=== PATIENT | female | born 1950 | race Caucasian/White ===

== ENCOUNTER 2020-04-04 06:10 | Emergency (ER) | payer MEDICARE, BC ==
--- NOTE | 2020-04-04 06:28 | ED Physician Documentation ---
PD HPI LOWER EXT INJURY - Stated complaint Stated Complaint: R FOOT PX - Chief complaint Chief Complaint: Trauma Ext - History obtained from History obtained from: Patient - History of Present Illness PD HPI LOW EXT INJURY LOCATION: Right, Foot Type of injury: Twist Where injury occurred: Home Timing - onset: Yesterday Timing - details: Abrupt onset Pain level now: 4 Improved by: Rest, Ice, Immobilization Worsened by: Moving, Palpating Associated symptoms: Swelling Recently seen: Not recently seen - Additional information Additional information: c/o sudden onset right foot pain, lateral aspect, with swelling. onset was yesterday while walking in her garden, stepped on uneven surface and sustained twisting injury to right foot. She has h/o right 4th and 5th metatarsal fractures, sustained last year, which have been managed nonsurgically. She took Tylenol with codeine yesterday after the injury with modest relief Review of Systems Musculoskeletal: reports: Extremity pain, Extremity swelling, Pain with weight bearing Neurologic: denies: Focal weakness, Numbness PD PAST MEDICAL HISTORY - Past Medical History Past Medical History: Yes Cardiovascular: Hypertension, High cholesterol - Present Medications Home Medications: Ambulatory Orders Medication Instructions Recorded Confirmed Acetaminophen/Cod 300/30 [Tylenol 1 tab PO DAILY PRN 04/04/20 04/04/20 #3] HYDROcod/ACETAM 5/325 [Felton 5/325] 1 - 2 ea PO Q6H PRN #15 tablet 04/04/20 Lisinopril [Zestril] 10 mg PO DAILY 04/04/20 04/04/20 Rosuvastatin Calcium [Crestor] 40 mg PO DAILY 04/04/20 04/04/20 - Allergies Allergies/Adverse Reactions: Allergies Allergy/AdvReac Type Severity Reaction Status Date / Time atorvastatin [From Lipitor] AdvReac Cramps Verified 04/04/20 06:29 [email or web address] AdvReac Cramps Verified 04/04/20 06:28 - Living Situation Living Situation: reports: With spouse/s.o. Living Arrangement: reports: At home PD ED PE NORMAL - Vitals Vital signs reviewed: Yes - General General: Alert and oriented X 3, No acute distress, Well developed/nourished - Derm Derm: Normal color - Neuro Neuro: No motor deficit, No sensory deficit PD ED PE EXPANDED - Extremities Feet visual: 1 - swelling, tenderness Results - Vitals Vitals: Vital Signs - 24 hr 04/04/20 06:10 Temperature 35.8 C L Heart Rate 108 H Respiratory 16 Rate Blood Pressure 163/83 H O2 Saturation 96 Oxygen O2 Source Room air - Rads (name of study) right foot xrays Radiology: Prelim report reviewed, See rad report PD MEDICAL DECISION MAKING - ED course Complexity details: reviewed results, re-evaluated patient, considered differential, d/w patient Departure - Departure Disposition: 01 Home, Self Care Clinical Impression: Cuboid fracture Condition: Good Instructions: ED Crutch Walking, ED Fx Foot, ED Splint Care Fiberglass Follow-Up: Jett Cordero MD [Provider Admit Priv/Credential] - Prescriptions: HYDROcod/ACETAM 5/325 [Felton 5/325] 1 - 2 ea PO Q6H PRN #15 tablet PRN Reason: Pain Comments: Your xrays show: 1) a tiny avulsion fracture posterior inferior aspect of the cuboid bone with adjacent soft tissue edema 2) deformity from remote fractures of the fourth and fifth metatarsals. 3) plantar calcaneal spur
--- NOTE | 2020-04-04 08:06 | XRAY Report ---
PROCEDURE: Foot 3 View RT INDICATIONS: inverted R foot/swelling c/o pain. TECHNIQUE: 3 views of the foot were acquired. COMPARISON: None FINDINGS: Bones: No fractures or dislocations. No suspicious bony lesions. Osteopenia and IP degenerative ch anges are noted. Old mid fifth metatarsal fracture is present. Soft tissues: No tibiotalar joint effusion. Achilles tendon appears normal. IMPRESSION: No visualized acute fracture or dislocation. However, occult injury cannot be excluded. Recommend yvonne rt interval imaging follow-up in 7-10 days as clinically indicated for additional evaluation. Reviewed by: Lois Foy MD on 04/04/2020 8:04 AM PDT Approved by: Lois Foy MD on 04/04/2020 8:04 AM PDT Station ID: [id number]
[2020-04-04 08:56] VITALS: BP 156/99
== END 2020-04-04 09:03 | disposition home or self-care (01) ==
LOC: ED 06:10
DX: S92.211A Displaced fracture of cuboid bone of right foot, initial encounter for closed fracture (principal); X50.1XXA Overexertion from prolonged static or awkward postures, initial encounter; Y93.01 Activity, walking, marching and hiking; Y92.007 Garden or yard of unspecified non-institutional (private) residence as the place of occurrence of the external cause
CPT/HCPCS: 99283

== ENCOUNTER 2021-02-25 15:30 | Outpatient (CLI) | payer MEDICARE, BC ==
--- NOTE | 2021-02-25 15:56 | XRAY Report ---
PROCEDURE: Foot 3 View RT INDICATIONS: PAIN + EDEMA RT FOOT TECHNIQUE: 3 views of the foot were acquired. COMPARISON: 04/04/2020 plain films examination FINDINGS: Bones: No acute fractures or dislocations. Healed fracture deformity of the fifth metatarsal. Severe joint space narrowing and periarticular osteophyte formation at the first metatarsophalangeal joint. No suspicious bony lesions. Soft tissues: No tibiotalar joint effusion. Achilles tendon appears normal. IMPRESSION: 1. First metatarsophalangeal joint osteoarthritis. 2. Chronic fifth metatarsal fracture. 3. No acute fracture. No osseous lesion. If symptoms and/or clinical suspicion for pathology continue , further assessment with repeat plain films, or advanced imaging (e.g., CT, MRI, or bone scan) is re commended for further assessment. Reviewed by: Rhett Raines MD on 02/25/2021 3:55 PM PDT Approved by: Rhett Raines MD on 02/25/2021 3:55 PM PDT Station ID: [id number]
== END 2021-02-25 15:31 | disposition home or self-care (01) ==
LOC: DI 15:30
PROVIDERS: ATTEND Podiatrist
DX: M19.071 Primary osteoarthritis, right ankle and foot (principal); S92.351D Displaced fracture of fifth metatarsal bone, right foot, subsequent encounter for fracture with routine healing

== ENCOUNTER 2022-12-06 12:55 | Outpatient (CLI) | payer MEDICARE, BC ==
--- NOTE | 2022-12-06 14:09 | XRAY Report ---
PROCEDURE: Foot 3 View RT INDICATIONS: RIGHT FOOT PAIN TECHNIQUE: 3 views of the foot were acquired. COMPARISON: None FINDINGS: Bones: No fractures or dislocations. No suspicious bony lesions. First MTP joint space and associat ed osteophytosis. Healed fifth distal metatarsal fracture. Decreased bone mineralization. Soft tissues: No tibiotalar joint effusion. Achilles tendon appears normal. IMPRESSION: Moderate first MTP osteoarthritis. Reviewed by: Torres Palacios on 12/06/2022 2:08 PM HILDA Approved by: Torres Palacios on 12/06/2022 2:08 PM RUST Station ID: [id number]
== END 2022-12-06 12:56 | disposition home or self-care (01) ==
LOC: DI.S 12:55
PROVIDERS: ATTEND Physician Assistant
DX: M19.071 Primary osteoarthritis, right ankle and foot (principal)